=== PATIENT | female | born 1970 | race Caucasian/White ===

== ENCOUNTER 2016-09-07 02:22 | Inpatient (IN) ==
[2016-09-07 03:00] LABS: Basophils % 0.6 %; Eosinophils # 0.2 K/mcL (0.0-0.6); Eosinophils % 2.1 %; Hematocrit 41.2 % (35.3-44.9); Hemoglobin 13.9 g/dL (11.5-15.4); Immature Granulocytes % 0.3 % (0-4); Lymphocytes # 2.2 K/mcL (0.6-4.6); Lymphocytes % 30.8 %; Mean Corpuscular HGB Conc 33.7 g/dL (31.6-35.5); Mean Corpuscular Hemoglobin 28.7 pg (28.0-33.3); Mean Corpuscular Volume 85.1 fL (83.0-100.0); Mean Platelet Volume 9.5 fL (9.4-12.4); Monocytes # 0.6 K/mcL (0.0-1.3); Platelet Count 312 K/mcL (140-400); Red Blood Count 4.84 M/mcL (3.82-4.97); Red Cell Distribution Width 12.6 % (11.5-14.5); Segmented Neutrophils % 57.2 %
[2016-09-07 03:01] LABS: Bilirubin,Urine Negative (Negative); Blood,Urine Trace (Negative); Clarity,Urine Cloudy (Clear); Color,Urine Yellow (Yellow); Glucose,Urine (UA) Normal (Normal); Ketones,Urine Negative (Negative); Leukocyte Esterase,Urine Moderate (Negative); Nitrite,Urine Negative (Negative); Protein,Urine Negative (Neg-Trace); Specific Gravity,Urine 1.008 (1.010-1.025); Urobilinogen,Urine Normal (Normal)
[2016-09-07 03:03] LABS: Bacteria,Urine None Seen per hpf (None-Few); Hyaline Casts,Urine None Seen per lpf (None-Few); Squamous Epithelial Cell,Urine Many per lpf (None-Few); WBC,Urine 15-30 per hpf (0-3)
[2016-09-07 03:08] LABS: Amphetamine Screen,Urine Negative ng/mL (Cutoff=1000); Barbiturate Screen,Urine Negative ng/mL (Cutoff=200); Benzodiazepines Screen,Urine Negative ng/mL (Cutoff=200); Cannabinoid Screen,Urine Negative ng/mL (Cutoff = 50); Cocaine Screen,Urine Negative ng/mL (Cutoff= 300); Opiate Screen,Urine Negative ng/mL (Cutoff=300); Phencyclidine Screen,Urine Negative ng/mL (Cutoff=25)
[2016-09-07 03:14] LABS: BUN/Creatinine Ratio 9 (6-26); Blood Urea Nitrogen 7 mg/dL (7-20); Calcium 9.2 mg/dL (8.6-10.8); Carbon Dioxide 22 mEq/L (19-29); Chloride 107 mEq/L (98-109); Glucose 102 mg/dL (70-99); Osmolality,Calculated 288 (280-300); Potassium 3.2 mEq/L (3.5-4.5); Sodium 140 mEq/L (136-145); eGFR For African Americans > 60 (> 60); eGFR For Non-African Americans > 60 (> 60)
[2016-09-07 03:15] LABS: Acetaminophen < 1.0 mcg/mL (10-30); Ethanol < 10 mg/dL (0-10); Salicylate < 5.0 mg/dL (15-30)
--- NOTE | 2016-09-07 03:22 | Emergency Department Note ---
Disposition Clinical Impression: Suicidal ideation Depression Qualifiers: Depression Type: unspecified Qualified Code(s): F32.9 - Major depressive disorder, single episode, unspecified Disposition: Admitted As Inpatient Condition: Fair Instructions: Depression (ED) Referrals: NO,PCP [Primary Care Provider] - Forms: ED Satisfaction Letter Time of Disposition: 04:39 Psych HPI - General Chief Complaint: ED Psychiatric Symptoms Stated Complaint: SI anxiety Time Seen by Provider: 09/07/16 03:12 Source: patient Mode of arrival: ambulatory Limitations: no limitations Nursing Notes Reviewed: Yes Vital Signs Reviewed: Yes - History of Present Illness HPI Narrative: Patient is a 45-year-old female with a past medical history of depression, anxiety and hyperlipidemia that presents the ED with chief complaint suicidal ideations. Patient reports she has had intermittent suicidal thoughts for the past several days which have significantly worsened tonight. She denies any active plan. Does report that her PCP recently took her off citalopram secondary to QT prolongation and started her on Wellbutrin. She denies any homicidal ideations. Denies any chest pain, shortness of breath, headache, abdominal pain, nausea, vomiting or any other symptoms/complaints. Patient is very tearful on examination. Pt complaint: suicidal ideation, feels depressed Onset (ago): day(s) Duration: intermittent History of similar episodes: Yes Improves with: none Worsens with: none Alleged intoxication: No Associated Psychiatric Symptoms: depression, suicidal ideation, anxiety Associated symptoms: Reports: denies other symptoms. Denies: confusion, headache, shortness of breath, nausea, vomiting, syncope, insomnia Traumatic symptoms: denies traumatic injury Treatments prior to arrival: none Self harm or harm to others: admits thoughts of self harm, denies having a plan - Related Data Home Medications Medication Instructions Recorded Confirmed Atorvastatin Calcium [Lipitor] 20 mg PO DAILY 10/25/15 10/25/15 Citalopram Hydrobromide [Celexa] 40 mg PO DAILY 10/25/15 10/25/15 Etonogestrel/Ethinyl Estradiol 1 each VG Q3W 10/25/15 10/25/15 [Nuvaring Vaginal Ring] Fluticasone Propionate Nasal 2 spr NS BID 10/25/15 10/25/15 [Flonase] Previous Rx's Medication Instructions Recorded Amoxicillin 875 mg PO BID #20 tablet 06/30/16 Dexamethasone [Decadron] 4 mg PO DAILY #7 tab 10/25/15 Hydrocodone/Acetaminophen [[place] 1 each PO Q4-6H PRN #30 tablet 10/26/15 5-325 Tablet] Dicyclomine [Bentyl] 20 mg PO QID #30 capsule 06/19/16 Allergies Allergy/AdvReac Type Severity Reaction Status Date / Time moxifloxacin [From Avelox] AdvReac Palpitation Verified 10/25/15 08:41 s All systems ED: reviewed and negative except as stated. Constitutional: Denies: fever, chills, weakness Cardiovascular: Denies: chest pain, palpitations, dyspnea on exertion, syncope Respiratory: Denies: dyspnea Gastrointestinal: Denies: abdominal pain, nausea, vomiting Genitourinary: Denies: urgency, dysuria, frequency, hematuria, dyspareunia Musculoskeletal: Denies: back pain, neck pain Integumentary: Denies: rash Neurological: Denies: headache, weakness Psychiatric: Reports: anxiety, depression, suicidal thoughts. Denies: homicidal thoughts, auditory hallucinations, visual hallucinations Past Medical History - Past Medical History Source: patient Medical history: Reports: no medical history Psychiatric history: Reports: no psych history - Social History Smoking Status: Never smoker Smokeless Tobacco Status: No Alcohol use: Reports: none Drug use: Reports: none Physical Exam - General Limitations: no limitations General appearance: alert, in no apparent distress - Head Head exam: atraumatic, normocephalic, normal inspection - Eye Eye exam: Present: normal appearance, EOMI - ENT ENT exam: normal oropharynx, mucous membranes moist - Neck Neck exam: Present: normal inspection - Chest Chest inspection: Present: symmetric chest wall rise - Respiratory Respiratory exam: Present: normal lung sounds bilaterally - Cardiovascular Cardiovascular exam: Present: regular rate, normal rhythm, normal heart sounds - Abdominal Exam Abdominal exam: Present: soft, Non-Tender - Extremities Exam Extremities exam: Present: normal inspection, full ROM - Neurological Exam Neurological exam: Present: alert, oriented X3 - Psychiatric Psychiatric exam: Present: depressed, suicidal ideation, other (Tearful) - Skin Skin exam: Present: warm, dry, intact, normal color. Absent: rash, cyanosis, diaphoresis Course Course Narrative: Plan to obtain psych labs for medical clearance she will need to be evaluated by 1A - Reevaluation(s) Reevaluation #1: Discussed UA results with patient. Patient reports that she is having no urinary symptoms. She denies any dysuria, urinary urgency/frequency, hematuria , abdominal pain, back pain, fever or any other symptoms/complaints. At this time I will not start patient on any antibiotics since her urine was contaminated and she is asymptomatic. We will still send UA for culture. Patient medically cleared. Waiting on to evaluate patient Time: 03:27 Reevaluation #2: 1 a evaluated patient and will accept patient to their services. Patient stable to be transferred to. Discussed case with Dr. North. He agrees with assessment and treatment plan. Time: 04:39 Vital Signs Temperature 98.3 F 09/07/16 02:22 Pulse Rate 92 09/07/16 02:22 Respiratory Rate 18 09/07/16 02:22 Blood Pressure 141/94 09/07/16 02:22 O2 Sat by Pulse Oximetry 98 09/07/16 02:22 Temperature 98.3 F 09/07/16 02:22 Pulse Rate 92 09/07/16 02:22 Respiratory Rate 0 09/07/16 04:35 Blood Pressure 0/0 09/07/16 04:35 O2 Sat by Pulse Oximetry 98 09/07/16 02:22 Oxygen Delivery Oxygen Delivery Room Air Psych - Lab Data Result diagrams: 09/07/16 02:45 09/07/16 02:45 Lab Results 09/07/16 09/07/16 09/07/16 Range/Units 02:45 02:45 02:45 WBC (4.3-11.1) K/mcL RBC (3.82-4.97) M/mcL Hgb (11.5-15.4) g/dL Hct (35.3-44.9) % MCV (83.0-100.0) fL MCH (28.0-33.3) pg MCHC (31.6-35.5) g/dL RDW (11.5-14.5) % Plt Count (140-400) K/mcL MPV (9.4-12.4) fL Immature Gran % (0-4) % Seg Neutrophils % % Lymphocytes % % Monocytes % % Eosinophils % % Basophils % % Neutrophils # (1.6-8.9) K/mcL Lymphocytes # (0.6-4.6) K/mcL Monocytes # (0.0-1.3) K/mcL Eosinophils # (0.0-0.6) K/mcL Basophils # (0.0-0.2) K/mcL Sodium (136-145) mEq/L Potassium (3.5-4.5) mEq/L Chloride (98-109) mEq/L Carbon Dioxide (19-29) mEq/L BUN (7-20) mg/dL Creatinine (0.57-1.11) mg/dL Est GFR ( Amer) (> 60) Est GFR (Non-Af Amer) (> 60) BUN/Creatinine Ratio (6-26) Glucose (70-99) mg/dL Calculated Osmolality (280-300) Calcium (8.6-10.8) mg/dL Urine Color Yellow (Yellow) Urine Clarity Cloudy A (Clear) Urine pH 7.0 (5.0-8.0) pH Units Ur Specific [place] 1.008 L (1.010-1.025) Urine Protein Negative (Neg-Trace) mg/dL Urine Glucose (UA) Normal (Normal) mg/dL Urine Ketones Negative (Negative) mg/dL Urine Blood Trace H (Negative) Urine Nitrite Negative (Negative) Urine Bilirubin Negative (Negative) Urine Urobilinogen Normal (Normal) mg/dL Ur Leukocyte Esterase Moderate H (Negative) Urine Microscopic RBC 5-15 H (0-3) per hpf Urine Microscopic WBC 15-30 H (0-3) per hpf Ur Squamous Epith Cells Many H (None-Few) per lpf Urine Bacteria None Seen (None-Few) per hpf Hyaline Casts None Seen (None-Few) per lpf Urine Test Negative (Negative) Salicylates (15-30) mg/dL Urine Opiates Screen Negative (Rjqetr=498) ng/mL Acetaminophen (10-30) mcg/mL Ur Barbiturates Screen Negative (Phzlhy=514) ng/mL Ur Phencyclidine Scrn Negative (Cutoff=25) ng/mL Ur Amphetamines Screen Negative (Nyyhge=0484) ng/mL U Benzodiazepines Scrn Negative (Sgityg=214) ng/mL Urine Cocaine Screen Negative (Cutoff= 300) ng/mL U Marijuana (THC) Screen Negative (Cutoff = 50) ng/mL Ethyl Alcohol (0-10) mg/dL 09/07/16 09/07/16 Range/Units 02:45 02:45 WBC 7.0 (4.3-11.1) K/mcL RBC 4.84 (3.82-4.97) M/mcL Hgb 13.9 (11.5-15.4) g/dL Hct 41.2 (35.3-44.9) % MCV 85.1 (83.0-100.0) fL MCH 28.7 (28.0-33.3) pg MCHC 33.7 (31.6-35.5) g/dL RDW 12.6 (11.5-14.5) % Plt Count 312 (140-400) K/mcL MPV 9.5 (9.4-12.4) fL Immature Gran % 0.3 (0-4) % Seg Neutrophils % 57.2 % Lymphocytes % 30.8 % Monocytes % 9.0 % Eosinophils % 2.1 % Basophils % 0.6 % Neutrophils # 4.0 (1.6-8.9) K/mcL Lymphocytes # 2.2 (0.6-4.6) K/mcL Monocytes # 0.6 (0.0-1.3) K/mcL Eosinophils # 0.2 (0.0-0.6) K/mcL Basophils # 0.0 (0.0-0.2) K/mcL Sodium 140 (136-145) mEq/L Potassium 3.2 L (3.5-4.5) mEq/L Chloride 107 (98-109) mEq/L Carbon Dioxide 22 (19-29) mEq/L BUN 7 (7-20) mg/dL Creatinine 0.75 (0.57-1.11) mg/dL Est GFR ( Amer) > 60 (> 60) Est GFR (Non-Af Amer) > 60 (> 60) BUN/Creatinine Ratio 9 (6-26) Glucose 102 H (70-99) mg/dL Calculated Osmolality 288 (280-300) Calcium 9.2 (8.6-10.8) mg/dL Urine Color (Yellow) Urine Clarity (Clear) Urine pH (5.0-8.0) pH Units Ur Specific [place] (1.010-1.025) Urine Protein (Neg-Trace) mg/dL Urine Glucose (UA) (Normal) mg/dL Urine Ketones (Negative) mg/dL Urine Blood (Negative) Urine Nitrite (Negative) Urine Bilirubin (Negative) Urine Urobilinogen (Normal) mg/dL Ur Leukocyte Esterase (Negative) Urine Microscopic RBC (0-3) per hpf Urine Microscopic WBC (0-3) per hpf Ur Squamous Epith Cells (None-Few) per lpf Urine Bacteria (None-Few) per hpf Hyaline Casts (None-Few) per lpf Urine Test (Negative) Salicylates < 5.0 L (15-30) mg/dL Urine Opiates Screen (Axzvrp=495) ng/mL Acetaminophen < 1.0 L (10-30) mcg/mL Ur Barbiturates Screen (Rqjjjm=049) ng/mL Ur Phencyclidine Scrn (Cutoff=25) ng/mL Ur Amphetamines Screen (Thxwaa=8252) ng/mL U Benzodiazepines Scrn (Allgqb=762) ng/mL Urine Cocaine Screen (Cutoff= 300) ng/mL U Marijuana (THC) Screen (Cutoff = 50) ng/mL Ethyl Alcohol < 10 (0-10) mg/dL Psychiatric Medical Clearance - Medical Clearance Checklist Medical History: No Social History Section defined Current Vitals: Last Vital Signs Temp 98.3 F 09/07/16 02:22 Pulse 92 09/07/16 02:22 Resp 0 09/07/16 04:35 BP 0/0 09/07/16 04:35 Pulse Ox 98 09/07/16 02:22 Psychiatric Lab Panel: Drug Levels and Toxicity 09/07/16 09/07/16 02:45 02:45 Urine Opiates Screen Negative Acetaminophen < 1.0 L Ur Barbiturates Screen Negative Ur Phencyclidine Scrn Negative Ur Amphetamines Screen Negative U Benzodiazepines Scrn Negative Urine Cocaine Screen Negative U Marijuana (THC) Screen Negative Ethyl Alcohol < 10 Abnormal Labs: Abnormal lab results Potassium 3.2 mEq/L (3.5-4.5) L 09/07/16 02:45 Glucose 102 mg/dL (70-99) H 09/07/16 02:45 Urine Clarity Cloudy (Clear) A 09/07/16 02:45 Ur Specific [place] 1.008 (1.010-1.025) L 09/07/16 02:45 Urine Blood Trace (Negative) H 09/07/16 02:45 Ur Leukocyte Esterase Moderate (Negative) H 09/07/16 02:45 Urine Microscopic RBC 5-15 per hpf (0-3) H 09/07/16 02:45 Urine Microscopic WBC 15-30 per hpf (0-3) H 09/07/16 02:45 Ur Squamous Epith Cells Many per lpf (None-Few) H 09/07/16 02:45 Salicylates < 5.0 mg/dL (15-30) L 09/07/16 02:45 Acetaminophen < 1.0 mcg/mL (10-30) L 09/07/16 02:45 Statement of Medical Clearance: I have evaluated the patient, reviewed diagnostic information, and certify that the patient's medical condition is sufficiently stable that transfer to the psychiatric unit does not pose a significant risk of deterioration.
[2016-09-07] MEDS ORDERED: Haloperidol Lactate 5 MG/ML VIAL IM PRN (04:53)
[2016-09-07] MEDS ORDERED: *HR* LORazepam 1 MG TABLET PO PRN (04:53)
[2016-09-07] MEDS ORDERED: *HR* LORazepam 2 MG/ML VIAL IM PRN (04:53)
[2016-09-07] MEDS ORDERED: hydrOXYzine pamoate 25 MG CAPSULE PO PRN (04:53)
[2016-09-07] MEDS ORDERED: MOM Conc 10 ML UD.LIQ PO PRN (04:53)
[2016-09-07] MEDS ORDERED: Acetaminophen 325 MG TABLET PO PRN (04:53)
[2016-09-07] MEDS ORDERED: Mag Hydrox/Al Hydrox/Simeth 30 ML UDC PO PRN (04:53)
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
[2016-09-07] MEDS: Mirtazapine 15 MG TABLET PO SCH (21:27)
[2016-09-07] MEDS: traZODone 50 MG TABLET PO PRN (23:05)
--- NOTE | 2016-09-08 13:27 | Psychiatry Progress Note ---
Date of Encounter: 09/08/16 Time of Encounter: 13:00 Subjective Interval history: Patient seen for follow-up. Notes and medication were reviewed. Patient reports sleeping better with trazodone, she did not take Wellbutrin for adequate time and she is willing to take it early in the day and use trazodone for sleep. I had a long discussion with her about depression and coping, and improving energy and motivation and she is interested in individual and family therapy. 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 She denies any suicidal ideation. Objective: Exam Patient orientation: Yes Person, Yes Time, Yes Place Level of alertness: Alert Patient appearance: Appropriate, Well Groomed Behavior: calm, cooperative Psychomotor activity: Normal Eye contact: Maintains Eye Contact Mood description: Depressed, Anxious Affect description: congruent with mood, constricted Speech pattern: Normal rate, Normal rhythm, Normal tone Speech volume: Normal Thought process: Linear, Goal Oriented Thought content: No Suicidal ideation, No Homicidal ideation, No Overt delusions Perceptual disturbances: No Auditory hallucinations, No Visual hallucinations Judgment: Fair Insight: Partial Results - Vital Signs Vital Signs: Temp Pulse Resp BP Pulse Ox 98.3 F 77 16 134/87 98 09/08/16 09:00 09/08/16 09:00 09/08/16 09:00 09/08/16 09:00 09/07/16 02:22 Assessment and Plan (1) Depression Current visit: No Status: Acute Plan: Continue hospitalization, Close observation, Suicide Precautions per unit protocol, Encourage participation in unit milieu, Group Therapy, Monitor sleep, Monitor appetite Additional Plan: We will start Wellbutrin SR 150 mg daily benefits and side effects were discussed and we will monitor Risks, benefits, side effects, alternatives discussed w/pt: Yes Patient agreeable to treatment: Yes Qualifiers: Depression Type: unspecified Qualified Code(s): F32.9 - Major depressive disorder, single episode, unspecified Consult Discharge Plan - Plan Referrals: NO,PCP [Primary Care Provider] -
[2016-09-08] MEDS: BuPROPion SR (12 HR) 150 MG TABLET PO SCH (13:39)
[2016-09-08] MEDS: Mirtazapine 15 MG TABLET PO SCH (20:36)
[2016-09-09] MEDS: BuPROPion SR (12 HR) 150 MG TABLET PO SCH (09:18)
--- NOTE | 2016-09-09 13:36 | Psychiatry Progress Note ---
Date of Encounter: 09/09/16 Time of Encounter: 13:00 Subjective Interval history: Patient is here for follow-up. She is tolerating Wellbutrin and denies any side effects. She was able to sleep without any medication last night. She continued to feel depressed and overwhelmed by her family and marital issues. She is planning to have individual therapy first before she can get involved in family or couples therapy. insulation worker furnace installer is working was her on plans for outpatient follow-up. She denies suicidal ideation. Objective: Exam Patient orientation: Yes Person, Yes Time, Yes Place Level of alertness: Alert Patient appearance: Appropriate, Well Groomed Behavior: calm, cooperative, guarded Psychomotor activity: Normal Eye contact: Maintains Eye Contact Mood description: Depressed, Anxious Affect description: congruent with mood, constricted Speech pattern: Normal rate, Normal rhythm, Normal tone Speech volume: Normal Thought process: Linear, Goal Oriented Thought content: No Suicidal ideation, No Homicidal ideation, No Overt delusions Perceptual disturbances: No Auditory hallucinations, No Visual hallucinations Judgment: Fair Insight: Partial Results - Vital Signs Vital Signs: Temp Pulse Resp BP Pulse Ox 98.9 F 75 20 123/86 98 09/09/16 09:00 09/09/16 09:00 09/09/16 09:00 09/09/16 09:00 09/07/16 02:22 Assessment and Plan (1) Depression Current visit: No Status: Acute Plan: Continue hospitalization, Close observation, Suicide Precautions per unit protocol, Encourage participation in unit milieu, Group Therapy, Monitor sleep, Monitor appetite Additional Plan: We will discontinue mirtazapine. Patient is concerned about possible weight gain. Risks, benefits, side effects, alternatives discussed w/pt: Yes Patient agreeable to treatment: Yes Qualifiers: Depression Type: unspecified Qualified Code(s): F32.9 - Major depressive disorder, single episode, unspecified Consult Discharge Plan - Plan Referrals: NO,PCP [Primary Care Provider] -
[2016-09-10] MEDS: BuPROPion SR (12 HR) 150 MG TABLET PO SCH (09:18)
--- NOTE | 2016-09-10 14:23 | Psychiatry Progress Note ---
Date of Encounter: 09/10/16 Time of Encounter: 14:00 Subjective Interval history: Patient is seen for follow-up. Patient states she is not sure about her discharge plans with her to go home or to stay with her parents for a few days. She reports she could not sleep last night because she she was worried about her future plans. She continued to be guarded and apprehensive. I encouraged the patient to discuss her concerns with the social worker clinical to modify her discharge plans. She denies any suicidal ideation. Objective: Exam Patient orientation: Yes Person, Yes Time, Yes Place Level of alertness: Alert Patient appearance: Appropriate, Well Groomed Behavior: calm, cooperative, guarded, withdrawn Psychomotor activity: Slowed Eye contact: Maintains Eye Contact Mood description: Depressed, Anxious Affect description: congruent with mood, constricted Speech pattern: Normal rate, Normal rhythm, Normal tone, Limited Speech volume: Soft/Quiet Thought process: Linear, Goal Oriented Thought content: No Suicidal ideation, No Homicidal ideation, No Overt delusions Perceptual disturbances: No Auditory hallucinations, No Visual hallucinations Judgment: Fair Insight: Partial Results - Vital Signs Vital Signs: Temp Pulse Resp BP Pulse Ox 98.2 F 84 16 139/92 98 09/10/16 08:47 09/10/16 08:47 09/10/16 08:47 09/10/16 08:47 09/07/16 02:22 Assessment and Plan (1) Depression Current visit: No Status: Acute Plan: Continue hospitalization, Close observation, Suicide Precautions per unit protocol, Encourage participation in unit milieu, Group Therapy, Monitor sleep, Monitor appetite Risks, benefits, side effects, alternatives discussed w/pt: Yes Patient agreeable to treatment: Yes Qualifiers: Depression Type: unspecified Qualified Code(s): F32.9 - Major depressive disorder, single episode, unspecified Consult Discharge Plan - Plan Referrals: Bhavin Sharp, PhD [Outside] (Dr. Sharp will contact you directly to schedule your first appointment.) Luis Li DO [Partnered Physician] - 10/02/16 8:30 am (The above appointment is with Dr. Li.)
[2016-09-10] MEDS: traZODone 50 MG TABLET PO PRN (21:26)
[2016-09-11 08:55] VITALS: BP 108/77
[2016-09-11] MEDS: BuPROPion SR (12 HR) 150 MG TABLET PO SCH (09:06)
--- NOTE | 2016-09-11 14:00 | Discharge Summary ---
Date of Encounter: 09/11/16 Time of Encounter: 13:45 Diagnosis - Discharge Diagnosis (1) Depression Status: Acute Qualifiers: Depression Type: unspecified Qualified Code(s): F32.9 - Major depressive disorder, single episode, unspecified Medications - Discharge Medications Prescriptions: BuPROPion SR (12 HR) [Wellbutrin SR] 150 mg PO DAILY #30 tablet.er hydrOXYzine pamoate [HydrOXYzine Pamoate] 25 mg PO TID PRN #30 capsule PRN Reason: Anxiety traZODone [TraZODone] 50 mg PO HS PRN #30 tablet PRN Reason: Insomnia Atorvastatin Calcium [Lipitor] 20 mg PO DAILY 10/25/15 [History] Etonogestrel/Ethinyl Estradiol [Nuvaring Vaginal Ring] 1 each VG Q3W 10/25/15 [ History] Dicyclomine [Bentyl] 20 mg PO QID #30 capsule 06/19/16 [Rx] Buspirone HCl [Buspar] 5 mg PO TID PRN 09/07/16 [History] BuPROPion SR (12 HR) [Wellbutrin SR] 150 mg PO DAILY #30 tablet.er 09/11/16 [Rx] hydrOXYzine pamoate [HydrOXYzine Pamoate] 25 mg PO TID PRN #30 capsule 09/11/16 [Rx] traZODone [TraZODone] 50 mg PO HS PRN #30 tablet 09/11/16 [Rx] Allergies moxifloxacin [From Avelox] Adverse Reaction (Verified 09/07/16 14:07) Palpitations Provider Date of admission: 09/07/16 04:44 Primary care physician: PCP NO Discharging clinician: Ko Greer Assessment and Plan - Patient/Caregiver Discharge Instructions Activity: resume usual activities as tolerated Diet: regular diet - Follow up Plan Follow up with: Bhavin Sharp, PhD [Outside] (Dr. Sharp will contact you directly to schedule your first appointment.) Luis Li DO [Partnered Physician] - 10/02/16 8:30 am (The above appointment is with Dr. Li.) Functional capacity at discharge: independent ambulation Overall status at discharge: Stable Disposition: Home, Self-Care Hospital Course Hospital course: Ms. Anguiano is a 45 year old female admitted for treatment of depression and suicidal ideation. For details of admission please see H&P On the unit patient medication were adjusted, Lexapro was discontinued and Wellbutrin was started in addition patient used Vistaril and trazodone as needed. Patient reported improved sleep with occasional mid insomnia, she participated in groups and activities and she was actively participating by making notes and reading books. This was her first psychiatric admission and she had difficulty adjusting to the inpatient environment. community health outreach worker was able to complete discharge planning and shared it with the patient and her family. Follow-up appointments for individual therapy and medication. On discharge patient was medically stable, and suicidal and future oriented to work on her family issues in therapy. - Time Spent with Patient Total time spent providing and/or coordinating discharge services: Greater than 30 minutes Quality - Multiple Antipsychotics Patient discharged on 2 or more antipsychotic medications: No Procedures - Procedures Procedures: Medication Management, Crisis Stabilization, Supportive Therapy, Group Therapy, Psychoeducational Therapy Mental Status Exam - Mental Status Exam Patient orientation: Yes Person, Yes Time, Yes Place Level of alertness: Alert Patient appearance: Appropriate, Well Groomed Behavior: calm, cooperative, anxious Psychomotor activity: Normal Eye contact: Maintains Eye Contact Mood description: Euthymic/stable Affect description: congruent with mood, full range, anxious Speech pattern: Normal rate, Normal rhythm, Normal tone Speech Volume: Normal Thought process: Linear, Goal Oriented Thought Content: No Suicidal ideation, No Homicidal ideation, No Overt delusions Perceptual Disturbances: No Auditory hallucinations, No Visual hallucinations Judgment: Limited Insight: Partial
== END 2016-09-11 15:44 | disposition home or self-care (01) | DRG 881 ==
LOC: EMEROO 02:22 → 1ANU 04:44 → SUATTDRO 04:44 → 1ANU 04:49
PROVIDERS: ADMIT Psychiatry & Neurology Psychiatry; ATTEND Psychiatry & Neurology Psychiatry